=== PATIENT | female | born 1995 | race Caucasian/White ===

== ENCOUNTER 2020-01-22 11:54 | Emergency (ER) | payer OTHER ==
[~2020-01-22] VITALS: Ht 170.2 cm; Wt 95.3 kg
--- NOTE | 2020-01-22 12:30 | Emergency Department Note ---
History of Present Illnes History of Present Illness Chief Complaint: Flu Like Symptoms History of Present Illness This is a 24 year old female arrived to the ED with complaints of fever and headaches. Pt states she is ~8 months . Chief Complaint Comment Patient in from home with reports of fever since yesterday, headaches, cough and shortness of breath. Patient reports that the cough is persistent but dry and non-productive. Patient denies smoking or history of asthma. No acute distress noted. Lungs clear to auscultation Historian: Patient Arrival Mode: Car Onset (how long ago): day(s) Radiation: Reports non-radiation Severity: mild Onset quality: gradual Duration (how long): day(s) Timing of current episode: constant Progression: unchanged Chronicity: new Context: Denies recent illness, Denies recent surgery Past Medical/Family History Physician Review I have reviewed the patient's past medical and family history. Any updates have been documented here. Past Medical History Recent Fever: Yes Clinical Suspicion of Infectio: Yes New/Unexplained Change in Ment: No Past Medical History: Hypertension Other Surgery: knee surgery Social History Smoking Cessation: Never Smoker Counseling Performed: No Alcohol Use: Occasional Any Illegal Drug Use: No Other Any Pre-Existing Lines (PICC,: No Review of Systems Review of Systems Constitutional: Reports no symptoms EENTM: Reports no symptoms Cardiovascular: Reports no symptoms Respiratory: Reports as per HPI, Reports chest congestion, Reports cough Gastrointestinal: Reports no symptoms Genitourinary: Reports no symptoms Musculoskeletal: Reports no symptoms Integumentary: Reports no symptoms Neurological: Reports no symptoms Psychological: Reports no symptoms Endocrine: Reports no symptoms Hematological/Lymphatic: Reports no symptoms Physical Exam Related Data Allergies: Coded Allergies: No Known Allergies (Unverified , 01/22/20) Triage Vital Signs Vital Signs Date Time Temp Pulse Resp B/P (MAP) Pulse Ox O2 Delivery O2 Flow Rate FiO2 01/22/20 11:59 98.1 94 16 139/96 100 Room Air Vital signs reviewed: Yes Physical Exam CONSTITUTIONAL Constitutional: Present well-developed, Present well-nourished HENT HENT: Present normocephalic, Present atraumatic, Present oropharynx clear/moist, Present nose normal HENT L/R: Present left ext ear normal, Present right ext ear normal EYES Eyes: Reports PERRL, Reports conjunctivae normal NECK Neck: Present ROM normal PULMONARY Pulmonary: Present effort normal, Present breath sounds normal CARDIOVASCULAR Cardiovascular: Present regular rhythm, Present heart sounds normal, Present capillary refill normal, Present normal rate GASTROINTESTINAL Abdominal: Present soft, Present nontender, Present bowel sounds normal, Present other (+GRAVID) GENITOURINARY Genitourinary: Present exam deferred SKIN Skin: Present warm, Present dry MUSCULOSKELETAL Musculoskeletal: Present ROM normal NEUROLOGICAL Neurological: Present alert, Present oriented x 3, Present no gross motor or sensory deficits PSYCHOLOGICAL Psychological: Present mood/affect normal, Present judgement normal Results Laboratory Lab results reviewed: Yes Critical Care Time Total Critical Care Time (min): 45 Critical care time exclusive o: separately billable procedures Critcal care necessary due to: cardiac failure Comments Patient high risk given history of preeclampsia, markedly hypertensive in the ED. Patient required frequent neuro checks and transfer to [facility] for NST monitoring. Assessment & Plan Medical Decision Making MDM 24-year-old female arrived to the ED with complaints of cough and fever. Concerns of possible coronavirus. Patient's gonzales test in the ED negative. Patient noted markedly hypertensive in the ED with a continuous diastolic greater than 100. Patient states she is compliant with her labetalol which she takes for her chronic hypertension. Patient did not have protein in the urine. Discussed concerns of hypertension with patient's OB Dr. Cortez given her history of preeclampsia. Patient transferred to [facility] for further workup and management. Assessment & Plan Final Impression: (1) Pre-eclampsia (2) Pre-eclampsia added to pre-existing hypertension Depart Disposition: TRANS TO OTHER [facility] Last Vital Signs Date Time Temp Pulse Resp B/P (MAP) Pulse Ox O2 Delivery O2 Flow Rate FiO2 01/22/20 11:59 98.1 94 16 139/96 100 Room Air BRANDT FOOTE DO Jan 22, 2020 12:30
--- NOTE | 2020-01-22 12:42 | Diagnostic Imaging Report ---
X-ray chest frontal view History: Fever Comparison: None Findings: Lines and tubes: Not applicable Central airways: Unremarkable Cardiac silhouette: Unremarkable Mediastinal silhouettes: Unremarkable Pleura: No pleural effusion, pneumothorax or thickening Diaphragms: Unremarkable Lungs: No focal lung disease Skeletal structures: Unremarkable Extrathoracic soft tissues: Unremarkable Impression: No acute cardiopulmonary disease Signed by: Ilan Babin MD on 01/22/2020 12:39 PM
[2020-01-22 13:35] LABS: BILIRUBIN,URINE NEGATIVE (NEGATIVE); CLARITY,URINE CLEAR (CLEAR); COLOR,URINE YELLOW (YELLOW); KETONES,URINE NEGATIVE (NEGATIVE); LEUKOCYTE ESTERASE ,URINE TRACE (NEGATIVE); NITRITE,URINE NEGATIVE (NEGATIVE); PROTEIN,URINE DIPSTICK NEGATIVE (NEGATIVE); URINE UROBILINOGEN 0.2 mg/dL (0.2 - 1)
[2020-01-22 13:38] LABS: BACTERIA,URINE FEW /HPF; EPITHELIAL CELLS,URINE RARE /LPF; RBC,URINE 0-5 /HPF (0-5)
[2020-01-22] MEDS ORDERED: LABETALOL HCL 100 MG TAB PO ONE (14:15)
[2020-01-22] MEDS ORDERED: LABETALOL HCL 200 MG TAB ONE (15:14)
== END 2020-01-22 16:10 | disposition other institution (70) ==
LOC: ER 12:34
DX: O11.3 Pre-existing hypertension with pre-eclampsia, third trimester (principal); Z11.59 Encounter for screening for other viral diseases
CPT/HCPCS: 71045; 81001; 87400; 99284; U0002

== ENCOUNTER 2020-07-07 19:33 | Emergency (ER) | payer OTHER ==
[~2020-07-07] VITALS: Ht 170.2 cm; Wt 95.3 kg
[2020-07-07] MEDS ORDERED: HYDROCODONE/APAP 5MG-325MG TAB PO ONE (20:15)
[2020-07-07] MEDS ORDERED: ONDANSETRON HCL 4 MG ORAL DISINTEGRATING TAB ONE (20:26)
[2020-07-07] MEDS ORDERED: ONDANSETRON HCL 4 MG ORAL DISINTEGRATING TAB PO ONE (20:30)
[2020-07-07] MEDS ORDERED: HYDROCODON-ACE1 EAC9 PO (22:33)
== END 2020-07-07 22:47 | disposition home or self-care (01) ==
LOC: ER 20:13
DX: M79.671 Pain in right foot (principal); S92.514A Nondisplaced fracture of proximal phalanx of right lesser toe(s), initial encounter for closed fracture; W22.09XA Striking against other stationary object, initial encounter; Y93.01 Activity, walking, marching and hiking; Y92.008 Other place in unspecified non-institutional (private) residence as the place of occurrence of the external cause; I10 Essential (primary) hypertension
CPT/HCPCS: 29515; 73630; 99283; Q0162